=== PATIENT | female | born 1935 | race Caucasian/White ===

== ENCOUNTER → 2016-05-31 | Outpatient (CLI) | payer MEDICARE, BC ==
--- NOTE | 2016-06-01 09:44 | RADRPT ---
PROCEDURE: I - 123 thyroid uptake and scan CLINICAL INDICATION: 80 -year-old patient with hyperthyroidism. TECHNIQUE: Following the oral administration of 0.19 mCi of I - 123, thyroid uptake and scan was o btained. COMPARISON: No prior thyroid scans. FINDINGS: 6 hours radioiodine uptake is 12 % (normal range is 5% - 20%). 24 hours radioiodine uptake is 16 % (normal range is 7% - 35%). The thyroid gland demonstrates a normal size with slightly heterogeneous distribution of radionuclid e throughout the thyroid gland. IMPRESSION: 1. Normal size thyroid gland with slightly heterogeneous distribution of radionuclide. 2. Normal radioiodine uptake. RPTAT: HH .Arti Mott MD, Date Time Electronically viewed and signed by .Arti Mott MD, on 06/01/2016 09:44 .L/
== END | disposition home or self-care (01) ==
LOC: NUC 08:45
PROVIDERS: ATTEND Internal Medicine
DX: R93.8 Abnormal findings on diagnostic imaging of other specified body structures (principal); E05.90 Thyrotoxicosis, unspecified without thyrotoxic crisis or storm
CPT/HCPCS: 78014; A9516